=== PATIENT | male | born 1985 | race Caucasian/White ===

== ENCOUNTER 2022-01-10 12:43 | Outpatient (CLI) | payer OTHER, SELFPAY ==
--- NOTE | 2022-01-10 12:50 | XR_ITS ---
WS: [id number] Exam: XR chest 2V* [id number] Date/Time of Exam: 01/10/2022 12:50 PM Reason For Exam: RIB PAIN ON LEFT SIDE The lungs are clear. Normal cardiomediastinal silhouette. No pleural effusions. Bony structures are i ntact. Slight upper thoracic dextroscoliosis. XR/XR chest 2V* [id number] IMPRESSION: 1. No acute cardiopulmonary finding.
== END 2022-01-10 12:44 | disposition home or self-care (01) ==
PROVIDERS: PCP Nurse Practitioner Family; Visit Provider Nurse Practitioner Family
DX: R07.81 Pleurodynia (principal)
CPT/HCPCS: 71046

== ENCOUNTER 2022-05-24 11:36 | Emergency (ER) | payer OTHER, SELFPAY ==
[2022-05-24 11:46] VITALS: BP 154/101; PULSE 96; RESP 16; TEMP 36.9; O2SAT 99
--- NOTE | 2022-05-24 11:50 | ECG_ITS ---
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 Measurements Intervals [place] Rate: 82 P: 27 OR: 125 QRS: 87 QRSD: 79 T: 61 QT: 326 QTc: 381 Interpretive Statements SINUS RHYTHM No previous ECG available for comparison Electronically Signed On 05-25-2022 13:20:24 CDT by Brittany Gayle M.D. [id number]
--- NOTE | 2022-05-24 11:53 | PC.NURSE ---
Patient here with c/o left rib pain, has seen primary and has been given steroids x 5 and previously steroid shot, has been completed for 3 months and pain, better with rest but still there and keeps him awake at night, exertion makes works, steady and constant.
--- NOTE | 2022-05-24 12:06 | XR_ITS ---
WS: [id number] Exam: XR ribs LT mn 3V w CXR1V [id number] Date/Time of Exam: 05/24/2022 12:31 PM Reason For Exam: L rib pain x 4 months No acute left rib fracture or pneumothorax noted. No pleural or pulmonary reactive changes. The lungs are bilaterally clear. Normal cardiomediastinal silhouette. XR/XR ribs LT mn 3V w CXR1V [id number] IMPRESSION: 1. No acute left rib fracture or pneumothorax. 2. No acute cardiopulmonary finding.
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
[2022-05-24 12:18] VITALS: BP 149/98; PULSE 78; RESP 16; O2SAT 96
[2022-05-24 13:03] VITALS: BP 124/84; PULSE 88; RESP 19; TEMP 36.7; O2SAT 96
[2022-05-24 13:04] VITALS: BP 124/84; PULSE 88; RESP 19; TEMP 36.7; O2SAT 96
== END 2022-05-24 13:06 | disposition home or self-care (01) ==
PROVIDERS: Emergency Provider Physician Assistant; PCP Nurse Practitioner Family
DX: R07.81 Pleurodynia (principal); F17.210 Nicotine dependence, cigarettes, uncomplicated
CPT/HCPCS: 71101; 93005; 99284

== ENCOUNTER 2023-01-24 12:16 | Outpatient (CLI) | payer OTHER, SELFPAY ==
--- NOTE | 2023-01-24 12:29 | XR_ITS ---
WS: [id number] Right foot, AP and lateral views, 01/24/2023 Clinical Data: RIGHT FOOT PAIN Comparison: None. Findings: No fractures or dislocations are seen. No bone destruction or erosion is noted. The joint spaces and soft tissues are normal. XR/XR foot RT 2V [id number] Impression: Negative right foot.
--- NOTE | 2023-01-24 12:30 | XR_ITS ---
WS: [id number] Right ankle, AP and lateral views, 01/24/2023 Clinical Data: RIGHT ANKLE PAIN, UNSPECIFIED CHRONICITY Comparison: None. Findings: No fractures or dislocations are seen. The ankle mortise is normal. The talus and calcaneus are unrem arkable. No soft tissue swelling over the medial or lateral malleolus is seen. XR/XR ankle RT 2V [id number] Impression: Negative right ankle.
== END 2023-01-24 12:17 | disposition home or self-care (01) ==
LOC: RAD 12:22
PROVIDERS: PCP Nurse Practitioner Family; Visit Provider Nurse Practitioner Family
DX: M79.671 Pain in right foot (principal); M25.571 Pain in right ankle and joints of right foot
CPT/HCPCS: 73600; 73620

== ENCOUNTER 2024-07-13 09:08 | Outpatient (CLI) | payer OTHER, SELFPAY ==
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
== END 2024-07-13 09:09 | disposition home or self-care (01) ==
LOC: RAD 09:11
PROVIDERS: PCP Nurse Practitioner Family; Visit Provider Nurse Practitioner Family
DX: M54.40 Lumbago with sciatica, unspecified side (principal); Z87.311 Personal history of (healed) other pathological fracture
CPT/HCPCS: 72110